=== PATIENT | female | born 1960 | race Caucasian/White ===

== ENCOUNTER → 2019-11-22 | Outpatient (REF) | payer OTHER | LOC: M LAB REF 15:24 | PROVIDERS: ATTEND Internal Medicine Endocrinology, Diabetes & Metabolism | DX: E04.1 Nontoxic single thyroid nodule (principal) ==

== ENCOUNTER → 2020-12-14 | Outpatient (CLI) | payer BC, OTHER ==
--- NOTE | 2020-12-14 18:09 | REP ---
INDICATION: LUNG SCREENING. COMPARISON: [facility] 07/16/2017. TECHNIQUE: Low dose screening CT chest performed without the use of intravenous contrast. FINDINGS: Lungs: There is a 1 cm nodule in the left lower lobe. There is no other evidence of nodule or infiltrate. Heart: Not enlarged. Thoracic aorta: No aneurysm. There are atherosclerotic calcifications of the thoracic aorta. Mediastinal contours otherwise unremarkable. Visualized osseous structures: There are degenerative changes of the spine. IMPRESSION: Category 4A suspicious. 1 cm solid nodule left lower lobe. Recommend PET-CT exam. <Electronically signed by Curt Briceño > 12/14/20 [id number]
== END ==
LOC: M RAD 13:59
PROVIDERS: ATTEND Family Medicine
DX: R91.1 Solitary pulmonary nodule (principal)

== ENCOUNTER → 2021-12-17 | Outpatient (CLI) | payer BC, OTHER | LOC: M RAD 10:55 | PROVIDERS: ATTEND Internal Medicine Pulmonary Disease | DX: R91.1 Solitary pulmonary nodule (principal); J43.9 Emphysema, unspecified; I70.0 Atherosclerosis of aorta; I25.10 Atherosclerotic heart disease of native coronary artery without angina pectoris ==

== ENCOUNTER → 2022-05-23 | Outpatient (REF) | payer OTHER, BC ==
[2022-05-23 18:24] LABS: MALB URINE SIEMENS 26.7 MG/L; MAU/CREAT RATIO 27.5 MCG/MG (0.0-30.0)
== END ==
LOC: M LAB REF 17:14
PROVIDERS: ATTEND Nurse Practitioner Family
DX: E11.65 Type 2 diabetes mellitus with hyperglycemia (principal)

== ENCOUNTER → 2023-03-12 | Outpatient (REF) | payer OTHER | LOC: M LAB REF 12:52 | PROVIDERS: ATTEND Nurse Practitioner Family | DX: J02.9 Acute pharyngitis, unspecified (principal) ==

== ENCOUNTER → 2023-04-01 | Outpatient (CLI) | payer OTHER | LOC: M RAD 11:29 | PROVIDERS: ATTEND Internal Medicine Pulmonary Disease | DX: R91.1 Solitary pulmonary nodule (principal) ==

== ENCOUNTER → 2023-12-08 | Outpatient (CLI) | payer BC, OTHER | LOC: M RAD 13:42 | PROVIDERS: ATTEND Internal Medicine Pulmonary Disease | DX: R91.8 Other nonspecific abnormal finding of lung field (principal) ==

== ENCOUNTER → 2024-01-07 | Outpatient (CLI) | payer BC, OTHER | LOC: M WUC 11:05 | PROVIDERS: ATTEND Physician Assistant | DX: M25.511 Pain in right shoulder (principal); M19.011 Primary osteoarthritis, right shoulder ==